=== PATIENT | male | born 1995 | race Hispanic/Latino ===

== ENCOUNTER 2018-06-11 06:40 | Emergency (ER) | payer SELFPAY ==
[2018-06-11 06:45] VITALS: TEMP 97.4
--- NOTE | 2018-06-11 10:09 | ED PDOC ---
HPI: Psych/Substance Abuse Time Seen by Provider: 06/11/18 07:22 Chief Complaint (Nursing): Alcohol Ingestion Chief Complaint (Provider): Alcohol Ingestion History Per: Patient History/Exam Limitations: no limitations Current Symptoms Are (Timing): Still Present Suicide/Self Injury Attempted (Context): None Modifying Factor(s): Alcohol Severity: None Additional Complaint(s): 23 year old male presents to the ED via EMS for alcohol ingestion. He was found asleep outside his apartment building. Denies trauma and head injury. Offers no complaints at this time. PMD: none provided Past Medical History Reviewed: Historical Data, Nursing Documentation, Vital Signs Vital Signs: Last Vital Signs Temp 97.4 F L 06/11/18 06:42 Pulse 99 H 06/11/18 06:42 Resp 16 06/11/18 06:42 BP 136/86 06/11/18 06:42 Pulse Ox - Medical History PMH: Asthma (in childhood) - Surgical History Surgical History: No Surg Hx - Family History Family History: States: Unknown Family Hx - Home Medications Home Medications: Ambulatory Orders Medication Instructions Recorded Cyclobenzaprine [Cyclobenzaprine 10 mg PO BID #14 tab 03/15/16 HCl] Tramadol HCl [Ultram] 50 mg PO Q6 #15 tab 03/15/16 - Allergies Allergies/Adverse Reactions: Allergies Allergy/AdvReac Type Severity Reaction Status Date / Time No Known Allergies Allergy Verified 03/15/16 16:27 Review of Systems ROS Statement: Except As Marked, All Systems Reviewed And Found Negative Physical Exam - Reviewed Nursing Documentation Reviewed: Yes Vital Signs Reviewed: Yes - Physical Exam Appears: Positive for: Non-toxic, No Acute Distress Head Exam: Positive for: ATRAUMATIC, NORMAL INSPECTION, NORMOCEPHALIC Skin: Positive for: Normal Color, Warm, Dry Eye Exam: Positive for: EOMI, Normal appearance, PERRL Neck: Positive for: Normal, Painless ROM Cardiovascular/Chest: Positive for: Regular Rate, Rhythm Respiratory: Positive for: Normal Breath Sounds Extremity: Positive for: Normal ROM (upper and lower). Negative for: Deformity Neurologic/Psych: Positive for: Alert, Oriented. Negative for: Motor/Sensory Deficits - ECG Pulse Ox Interpretation: Normal Medical Decision Making Medical Decision Making: Patient is awake and alert without medical complaints. 12:02 --Reports no medical complaints. Looks well. Stable for discharge at this time. ------ Scribe Attestation: Documented by Adele Hodges acting as a scribe for Chiara Perdomo MD Provider Scribe Attestation: All medical record entries made by the Scribe were at my direction and personally dictated by me. I have reviewed the chart and agree that the record accurately reflects my personal performance of the history, physical exam, medical decision making, and the department course for this patient. I have also personally directed, reviewed, and agree with the discharge instructions and disposition. Disposition - Patient ED Disposition Is Patient to be Admitted: No - Disposition Disposition: Routine/Home Disposition Time: 12:02 Forms: [employer] ([place])
[2018-06-11 13:12] VITALS: BP 147/88; PULSE 90; RESP 18; O2SAT 99
== END 2018-06-11 13:12 | disposition home or self-care (01) ==
LOC: H.ER 06:40
DX: F10.129 Alcohol abuse with intoxication, unspecified (principal)
CPT/HCPCS: 82948; 99282; G0480